=== PATIENT | male | born 1950 | race Caucasian/White ===

== ENCOUNTER 2019-04-07 19:59 | Inpatient (IN) ==
[2019-04-07] MEDS ORDERED: Naloxone 0.4 MG/ML INJ IVP PRN (22:48)
[2019-04-07] MEDS ORDERED: 0.9 % Sodium Chloride 1,000 ML IV SCH (23:00)
[2019-04-07 23:36] LABS: Basophils % 0.2 %; Eosinophils # 0.3 K/mcL (0.0-0.6); Hematocrit 38.4 % (37.5-50.1); Hemoglobin 11.8 g/dL (12.9-16.9); Immature Granulocytes % 0.4 % (0-4); Lymphocytes # 1.2 K/mcL (0.6-4.6); Lymphocytes % 9.4 %; Mean Corpuscular HGB Conc 30.7 g/dL (31.6-35.5); Mean Corpuscular Hemoglobin 30.4 pg (28.0-33.3); Mean Platelet Volume 9.3 fL (9.4-12.4); Monocytes # 0.9 K/mcL (0.0-1.3); Neutrophils # 10.5 K/mcL (1.6-8.9); Platelet Count 240 K/mcL (140-400); Red Blood Count 3.88 M/mcL (4.19-5.50); Red Cell Distribution Width 14.5 % (11.5-14.5)
[2019-04-07 23:46] LABS: INR 0.9; Prothrombin Time 10.3 Seconds (9.4-12.1)
[2019-04-07 23:59] LABS: Albumin 2.9 g/dL (3.5-5.7); Albumin/Globulin Ratio 1.4 (1.1-2.2); Bilirubin,Total 0.5 mg/dL (0.3-1.0); Globulin 2.1 g/dL (2.4-3.5); Magnesium 2.5 mg/dL (1.6-2.6); Potassium 4.4 mEq/L (3.5-5.1)
[2019-04-08 02:32] LABS: Bilirubin,Urine Negative (Negative); Blood,Urine Moderate (Negative); Clarity,Urine Cloudy (Clear); Color,Urine Yellow (Yellow); Glucose,Urine (UA) Normal (Normal); Ketones,Urine Negative (Negative); Leukocyte Esterase,Urine Trace (Negative); Nitrite,Urine Negative (Negative); PH,Urine 5.5 pH Units (5.0-8.0); Protein,Urine 30 mg/dL (Neg-Trace); Specific Gravity,Urine 1.013 (1.010-1.025); Urobilinogen,Urine Normal (Normal)
[2019-04-08 02:43] LABS: Potassium,Urine 28.3 mEq/L; Sodium, Urine 48.7 mEq/L
[2019-04-08 02:47] LABS: Bacteria,Urine Moderate per hpf (None-Few); WBC,Urine 0-3 per hpf (0-3)
[2019-04-08 04:13] LABS: VBG HCO3 22 mEq/L (21-27); VBG PCO2 62 mmHg (41-51); VBG PH 7.15 pH Units (7.32-7.42); VBG PO2 38 mmHg (25-50)
[2019-04-08 04:34] LABS: Calcium 8.6 mg/dL (8.6-10.3); Chol/HDL Ratio 1.9 (0-4.9); Potassium 4.9 mEq/L (3.5-5.1)
[2019-04-08 04:38] LABS: ABG Base Excess -7 mEq/L (-2 to 3); ABG HCO3 20 mEq/L (21-27); ABG Oxygen Saturation 91 % (95-98); ABG PCO2 45 mmHg (35-45); ABG PH 7.26 pH Units (7.32-7.45); ABG PO2 71 mmHg (85-104); ABG TCO2 22 mEq/L (20-26)
[2019-04-08 04:47] LABS: Thyroid Stimulating Hormone 3.847 mcIU/mL (0.340-5.600)
[2019-04-08 04:55] LABS: Basophils % 0.2 %; Eosinophils # 0.3 K/mcL (0.0-0.6); Eosinophils % 1.7 %; Hematocrit 42.4 % (37.5-50.1); Hemoglobin 13.3 g/dL (12.9-16.9); Immature Granulocytes % 0.5 % (0-4); Lymphocytes # 0.9 K/mcL (0.6-4.6); Lymphocytes % 5.5 %; Mean Corpuscular HGB Conc 31.4 g/dL (31.6-35.5); Mean Corpuscular Hemoglobin 30.9 pg (28.0-33.3); Mean Corpuscular Volume 98.6 fL (83.0-100.0); Mean Platelet Volume 9.6 fL (9.4-12.4); Monocytes % 6.4 %; Neutrophils # 13.4 K/mcL (1.6-8.9); Platelet Count 265 K/mcL (140-400); Red Cell Distribution Width 14.3 % (11.5-14.5); Segmented Neutrophils % 85.7 %; White Blood Count 15.6 K/mcL (4.3-11.1)
[2019-04-08 05:06] LABS: Immature Reticulocyte % 6.4 % (11.0-38.0); Retculocyte # 0.03 M/mcL (0.05-0.10); Reticulocyte % 0.8 % (1.6-2.8)
[2019-04-08] MEDS: *HR* Heparin 5,000 UNIT/ML VIAL SQ SCH ×2 (05:17→18:17)
[2019-04-08 05:23] LABS: Folate > 22.3 ng/mL (3.0-16.0); Vitamin B12 473 pg/mL (250-1100)
[2019-04-08] MEDS: Aspirin Enteric Coated 81 MG Tablet PO SCH (08:30)
[2019-04-08] MEDS ORDERED: *HR* LORazepam 2 MG/ML VIAL IVP PRN ×3 (09:12)
[2019-04-08 12:07] LABS: Protein/Creatinine Ratio,Urine 0.87 mg/mg (0.00-0.20)
[2019-04-08] MEDS: Sodium Bicarbonate 50 MEQ in 0.45 % Sodium Chloride 1,000 ML IVC SCH ×2 (13:45→21:01)
[2019-04-08] MEDS ORDERED: Ipratropium/Albuterol Neb 3 ML IH PRN (14:52)
[2019-04-08 16:01] LABS: VBG HCO3 20 mEq/L (21-27); VBG PCO2 47 mmHg (41-51); VBG PH 7.25 pH Units (7.32-7.42); VBG PO2 155 mmHg (25-50)
[2019-04-08 16:20] LABS: Potassium 5.2 mEq/L (3.5-5.1)
[2019-04-08] MEDS: D5% in 0.9% NACL 1,000 ML IVC SCH (18:18)
[2019-04-09 00:08] LABS: Calcium 7.6 mg/dL (8.6-10.3); Potassium 4.7 mEq/L (3.5-5.1)
[2019-04-09] MEDS: D5% in 0.9% NACL 1,000 ML IVC SCH ×4 (00:15→21:16)
[2019-04-09 04:46] LABS: Basophils % 0.2 %; Eosinophils # 0.3 K/mcL (0.0-0.6); Eosinophils % 3.7 %; Hematocrit 32.9 % (37.5-50.1); Hemoglobin 10.5 g/dL (12.9-16.9); Immature Granulocytes % 0.4 % (0-4); Lymphocytes # 0.9 K/mcL (0.6-4.6); Lymphocytes % 10.9 %; Mean Corpuscular HGB Conc 31.9 g/dL (31.6-35.5); Mean Corpuscular Hemoglobin 30.7 pg (28.0-33.3); Mean Corpuscular Volume 96.2 fL (83.0-100.0); Mean Platelet Volume 9.5 fL (9.4-12.4); Monocytes # 0.7 K/mcL (0.0-1.3); Monocytes % 8.3 %; Neutrophils # 6.2 K/mcL (1.6-8.9); Platelet Count 217 K/mcL (140-400); Red Blood Count 3.42 M/mcL (4.19-5.50); Red Cell Distribution Width 14.2 % (11.5-14.5); Segmented Neutrophils % 76.5 %; White Blood Count 8.1 K/mcL (4.3-11.1)
[2019-04-09 05:02] LABS: Calcium 7.4 mg/dL (8.6-10.3); Potassium 4.4 mEq/L (3.5-5.1)
[2019-04-09] MEDS: *HR* Heparin 5,000 UNIT/ML VIAL SQ SCH ×2 (06:11→17:08)
[2019-04-09] MEDS: Aspirin Enteric Coated 81 MG Tablet PO SCH (08:23)
[2019-04-09] MEDS ORDERED: Folic Acid 1 MG TABLET PO SCH (09:00)
[2019-04-09] MEDS ORDERED: Thiamine (B-1) 100 MG TABLET PO SCH (09:00)
[2019-04-09] MEDS ORDERED: Vitamin B Complex/Vit C/Vit E 1 EACH TABLET PO SCH (09:00)
[2019-04-09] MEDS ORDERED: Naloxone 0.4 MG/ML INJ IVP PRN (10:56)
[2019-04-09] MEDS ORDERED: *HR* LORazepam 2 MG/ML VIAL IVP PRN ×3 (10:56)
[2019-04-09] MEDS ORDERED: Ipratropium/Albuterol Neb 3 ML IH PRN (10:56)
[2019-04-10] MEDS: D5% in 0.9% NACL 1,000 ML IVC SCH ×3 (04:48→14:32)
[2019-04-10] MEDS: *HR* Heparin 5,000 UNIT/ML VIAL SQ SCH ×2 (06:27→17:47)
[2019-04-10 08:06] LABS: Calcium 7.9 mg/dL (8.6-10.3)
[2019-04-10] MEDS: Vitamin B Complex/Vit C/Vit E 1 EACH TABLET PO SCH (08:14)
[2019-04-10] MEDS: Folic Acid 1 MG TABLET PO SCH (08:14)
[2019-04-10] MEDS: Aspirin Enteric Coated 81 MG Tablet PO SCH (08:14)
[2019-04-10] MEDS: Mirtazapine 15 MG TABLET PO SCH (08:14)
[2019-04-10] MEDS: Thiamine (B-1) 100 MG TABLET PO SCH (08:14)
[2019-04-11] MEDS: D5% in 0.9% NACL 1,000 ML IVC SCH (02:10)
[2019-04-11 06:22] LABS: Hematocrit 32.1 % (37.5-50.1); Hemoglobin 10.1 g/dL (12.9-16.9); Mean Corpuscular HGB Conc 31.5 g/dL (31.6-35.5); Mean Corpuscular Hemoglobin 30.3 pg (28.0-33.3); Mean Corpuscular Volume 96.4 fL (83.0-100.0); Mean Platelet Volume 9.8 fL (9.4-12.4); Platelet Count 256 K/mcL (140-400); Red Blood Count 3.33 M/mcL (4.19-5.50); Red Cell Distribution Width 14.4 % (11.5-14.5); White Blood Count 5.9 K/mcL (4.3-11.1)
[2019-04-11] MEDS: *HR* Heparin 5,000 UNIT/ML VIAL SQ SCH (06:31)
[2019-04-11 06:45] LABS: Albumin 2.5 g/dL (3.5-5.7); Albumin/Globulin Ratio 1.2 (1.1-2.2); Bilirubin,Direct 0.1 mg/dL (0.0-0.2); Bilirubin,Indirect 0.1 mg/dL (0.0-1.0); Bilirubin,Total 0.2 mg/dL (0.3-1.0); Calcium 8.1 mg/dL (8.6-10.3); Globulin 2.1 g/dL (2.4-3.5); Magnesium 1.8 mg/dL (1.6-2.6); Potassium 3.7 mEq/L (3.5-5.1); Total Protein 4.6 g/dL (6.4-8.9)
[2019-04-11] MEDS ORDERED: D5% in 0.9% NACL 1,000 ML IVC SCH (07:20)
[2019-04-11] MEDS ORDERED: D5% in 0.45% NACL 1,000 ML IVC SCH (07:30)
[2019-04-11] MEDS: Aspirin Enteric Coated 81 MG Tablet PO SCH (09:39)
[2019-04-11] MEDS: Thiamine (B-1) 100 MG TABLET PO SCH (09:39)
[2019-04-11] MEDS: Vitamin B Complex/Vit C/Vit E 1 EACH TABLET PO SCH (09:39)
[2019-04-11] MEDS: Folic Acid 1 MG TABLET PO SCH (09:39)
[2019-04-11] MEDS: Mirtazapine 15 MG TABLET PO SCH (09:40)
[2019-04-11 16:55] VITALS: BP 132/64
== END 2019-04-11 16:57 | DRG 683 ==
LOC: ICNU → SUATTDRO 04-08 10:00 → 2ANU 04-09 14:41
PROVIDERS: ADMIT Internal Medicine; ATTEND Internal Medicine